=== PATIENT | female | born 1980 | race Caucasian/White ===

== ENCOUNTER 2023-09-28 10:40 | Emergency (ER) | payer MEDICAID ==
[~2023-09-28] VITALS: Ht 162.6 cm; Wt 87.3 kg
[~2023-09-28 10:40] MED LIST: ARIP2TAB; ESCI10TA; METH40TA13
[2023-09-28 10:53] VITALS: TEMP 98
[2023-09-28 10:59] VITALS: BP 146/69; PULSE 74; RESP 17; O2SAT 100
== END 2023-09-28 14:22 | disposition home or self-care (01) ==
LOC: ER 10:40
DX: R07.81 Pleurodynia (principal); R51.9 Headache, unspecified; J45.909 Unspecified asthma, uncomplicated; F32.A Depression, unspecified; F17.210 Nicotine dependence, cigarettes, uncomplicated; Z90.49 Acquired absence of other specified parts of digestive tract; Z88.5 Allergy status to narcotic agent; Y08.89XA Assault by other specified means, initial encounter; Y93.89 Activity, other specified; Y92.89 Other specified places as the place of occurrence of the external cause; Y99.8 Other external cause status
CPT/HCPCS: 70450; 71101; 99284; J7030; J7060

== ENCOUNTER 2024-06-12 16:14 | Emergency (ER) | payer MEDICAID ==
[~2024-06-12] VITALS: Ht 162.6 cm; Wt 95.1 kg
--- NOTE | 2024-06-12 17:11 | ED.PDOC ---
HPI (NEURO) HPI Comments HPI: Past Medical History: ASTHMA, DEPRESSION Past Surgical History: CHOLECYSTECTOMY, Social History: Allergies: TRAMADOL HPI: Poor Historian. 44-year-old female presents to emergency department for two week history of nonspecific headache. She points her forehead and the crown of her head radiating to the back. Headache is mild and vague. Patient states that she gets headaches frequently. This one has been lingering in the longer. Patient has some intermittent associated blurry vision but she said she is supposed to be wearing prescription glasses but she is not wearing them. Patient also is here for urinary symptoms increasing urinary frequency for the last two weeks as well with some lower back discomfort associated with the urinary symptoms. Denies any other symptoms. Patient denies REVIEW OF SYSTEMS: CONSTITUTIONAL: Denies acute: fever, diaphoresis, chills, generalized weakness. HEAD: Denies acute: photophobia Eyes: Denies acute: Double vision, vision loss, eye pain, eye discharge. EARS: Denies acute: tinnitus, hearing loss, ear discharge, ear pain, THROAT: Denies acute: sore throat, swelling, difficulty swallowing , pain with swallowing, change in voice. NECK: Denies acute: neck pain, neck swelling, stiff neck. HEART: Denies acute : chest pain, palpitations, LUNGS: Denies acute: SOB, wheezing, cough, hemoptysis ABDOMEN: Denies acute: abdominal pain, Nausea, Vomiting, diarrhea, melena , hematemesis, hematochezia SKIN: Denies acute: rash, redness, lesions, itchiness. EXTREMITIES: Denies acute: calf pain, numbness, tingling, weakness, denies pain in extremity. Denies acute: Low back pain. Neuro: Denies acute: focal neurological deficit, motor or sensory focal neurological deficit, tremors, seizure like activity, confusion, dizziness, change in mental status, loss of bowel or bladder function, cauda equina like symptoms. : Denies acute: dysuria, hematuria, flank pain, PSYCH: Denies acute: hallucination, suicidal ideation, homicidal ideation. FEMALE: Denies acute: abnormal vaginal bleeding, foul odor, unusual discharge. PHYSICAL EXAM: General: no acute distress, awake and alert. Head: normocephalic, atraumatic. Neck: supple, trachea is midline, no swelling. Throat: Normal phonation. Eyes:, no erythema, no purulent discharge, no proptosis, no icterus. Heart: regular rate, regular rhythm, no significant murmur appreciated. Lungs: no apparent respiratory distress, Able to speak in full sentences. No wheezing, no rhonchi, no crackles. No stridors Clear to auscultation bilaterally. Abdomen: non tender to palpation, non distended, soft, no guarding, no rebound, + bowel sounds. Neuro: Awake, Alert, oriented to name, self, situation, follows commands GCS=15. Speech is normal. Skin: no petechia, no purpura, no cyanosis, non-pale, not jaundice. Lower extremities: --no - Pitting edema no deformity, no focal swelling, no calf TTP. Makes eye contact. moves all four extremities. Face: no apparent facial droop. Ambulating in the ED independently. PERRLA, EOM-I CN 2-12 are grossly intact, No nystagmus. No nuchal rigidity, Kernig's sign, Brudzinski's sign, no meningeal signs. ED COURSE: Chief Complaint: Headache Time Seen by MD: 16:21 Primary Care Provider: TOMY Reviewed Notes: Nurses Notes, Medications, Allergies Information Source: Patient Mode of Arrival: Ambulatory Past Medical History PAST MEDICAL HISTORY: Asthma, Depression Surgical History: Cholecystectomy, Family History Family History: Unknown Social History Smoker: Greater Than 1 Pack/Day Alcohol: Denies ETOH Use Drugs: Denies Drug Use Lives In: Home Was a procedure done? Was a procedure done?: No Differential Diagnosis (SZ) Seizure: N/A Headache: Other (DDX include Sinusitis, migraine, meningitis, hypertension, intracranial mass/bleed, stroke, radiculopathy, vertebrobasillary insufficiency, cephalgia, pseudotumor cerebri, cerebellar ischemia/infarct, carotid stenosis, lacunar infarct, vertebral/carotid artery dissection, hydrocephalus, temporal arteritis, dura venous sinus thrombosis.) X-Ray, Labs, Meds, VS Vital Signs Date Time Temp Pulse Resp B/P (MAP) Pulse Ox O2 Delivery O2 Flow Rate FiO2 06/12/24 22:09 98.6 78 16 116/72 (87) 99 98.6 06/12/24 21:13 72 20 98 Room Air* 0 21 06/12/24 21:12 98.3 75 18 149/78 (101) 98 98.3 06/12/24 17:30 60 16 118/61 (80) 96 06/12/24 17:17 74 20 95 Room Air* 0 21 06/12/24 16:25 97.6 83 19 117/74 (88) 96 Lab Test 06/12/24 17:00 06/12/24 16:57 06/12/24 16:52 Range/Units Urine Color Yellow Yellow Urine Clarity Clear Clear Urine pH 6.5 5.0-9.0 Urine Specific [place] 1.020 1.001-1.035 Urine Protein Negative Negative Urine Ketones Negative Negative Urine Blood Negative Negative /uL Urine Nitrite Negative Negative Urine Bilirubin Negative Negative Urine Urobilinogen 2 H Negative mg/dL Urine Leukocyte Esterase Trace Negative /uL Urine RBC 3 0 - 4 /hpf Urine Microscopic WBC 4 0-5 /HPF Urine Squamous Epithelial Cells Few <5 /hpf Urine Bacteria Few H None Seen /hpf Urine Mucus Few None Seen Urine Glucose Normal Normal mg/dL Urine Test Negative Negative Urine Opiates Screen Neg NEGATIVE Urine Fentanyl Screen Neg NEGATIVE Urine Barbiturates Screen Neg NEGATIVE Urine Phencyclidine Screen Neg NEGATIVE Urine Amphetamines Screen Neg NEGATIVE Urine Benzodiazepines Screen Neg NEGATIVE Urine Cocaine Screen Neg NEGATIVE Urine Cannabinoids Screen Neg NEGATIVE Lactic Acid Level 1.1 0.4-2.0 mmol/L White Blood Count 5.2 4.4-10.8 10^3/uL Red Blood Count 4.42 4.0-5.20 10^6/uL Hemoglobin 13.3 12.2-16.2 g/dL Hematocrit 39.5 36.0-46.0 % Mean Corpuscular Volume 89.4 80.0-100.0 fL Mean Corpuscular Hemoglobin 30.1 28.0-32.0 pg Mean Corpuscular Hemoglobin Concent 33.7 32.0-36.0 g/dL Red Cell Distribution Width 17.6 H 11.8-14.3 % Platelet Count 339 140-450 10^3/uL Mean Platelet Volume 7.7 6.9-10.8 fL Neutrophils (%) (Auto) 55.6 37.0-80.0 % Lymphocytes (%) (Auto) 32.0 10.0-50.0 % Monocytes (%) (Auto) 10.0 0.0-12.0 % Eosinophils (%) (Auto) 1.6 0.0-7.0 % Basophils (%) (Auto) 0.8 0.0-2.0 % Neutrophils # (Auto) 2.9 1.6-8.6 10 ^3/uL Lymphocytes # (Auto) 1.7 0.4-5.4 10 ^3/uL Monocytes # (Auto) 0.5 0-1.3 10 ^3/uL Eosinophils # (Auto) 0.1 0-0.8 10 ^3/uL Basophils # (Auto) 0 0-0.2 10 ^3/uL Nucleated Red Blood Cells 0.0 % Erythrocyte Sedimentation Rate Pending Sodium Level 139 136-145 mmol/L Potassium Level 4.3 3.5-5.1 mmol/L Chloride Level 107 98-107 mmol/L Carbon Dioxide Level 25 20-31 mmol/L Anion Gap 7 5-15 Blood Urea Nitrogen 13 9-23 mg/dL Creatinine 0.76 0.550-1.02 mg/dL Glomerular Filtration Rate Calc 98 >90 mL/min BUN/Creatinine Ratio 17.1 10.0-20.0 Serum Glucose 84 74-106 mg/dL Calcium Level 9.7 8.7-10.4 mg/dL Total Bilirubin 0.3 0.2-1.0 mg/dL Aspartate Amino Transferase (AST) 19 13-40 U/L Alanine Aminotransferase (ALT) 15 7-40 U/L Alkaline Phosphatase 58 46-116 U/L Troponin I High Sensitivity < 3 L </=34 ng/L Total Protein 6.9 5.7-8.2 g/dL Albumin 4.3 3.2-4.8 g/dL Current Medications Medications (Trade) Dose Ordered Sig/Ivon Route Start Time Stop Time Status Last Admin Sodium Chloride 1,000 ml @ 1,000 mls/hr Q1H ONCE IV 06/12/24 16:30 06/12/24 17:29 DC 06/12/24 17:16 Acetaminophen/ Hydrocodone Bitart ([place] 5/325MG Tab) 1 tab ONCE ONCE PO 06/12/24 16:30 06/12/24 16:31 DC 06/12/24 17:20 Ceftriaxone Sodium 50 ml @ 100 mls/hr ONCE ONCE IV 06/12/24 20:15 06/12/24 20:44 DC 06/12/24 21:02 [place] [address] Ph: [phone] DIAGNOSTIC IMAGING Diagnostic Imaging Report : [id number] Signed PATIENT: ANNMARIE SHEPHERD ACCT: [id number] UNIT: [id number] : 1980 LOC: ER ROOM / BED: / AGE / SEX: 44 / F ADM STATUS: REG ER SERVICE 1621 ORDERING PHYSICIAN: WING TAVARES DO PROCEDURE(s): HWOCT - HEAD WITHOUT CONTRAST REASON: [facility] ORDER NUMBER(s): [id number], ACCESSION NUMBER(s): [id number] EXAM: CT HEAD WITHOUT CONTRAST HISTORY: [facility] COMPARISON: CT HEAD WITHOUT CONTRAST on DOS: 09/28/23 TECHNIQUE: Axial images were obtained and reformatted in coronal and sagittal planes. All CT scans at this medical facility are performed using dose modulation techniques as appropriate to a performed exam including the following: Automated exposure control was utilized; adjustment of the MA and/or KV according to patient size; and use of iterative reconstruction technique. CT Dose: CTDI volume is 56.56 mGy. Dose-length product is 1133.0 mGy*cm FINDINGS: Supratentorial Region: No large acute territorial ischemia. A stable subcentimeter hypoattenuating focus at the inferior aspect of the lentiform nucleus. Stable subcortical hypoattenuating focus superior to left sylvian fissure . No intracranial hemorrhage is noted. Posterior Fossa: No acute abnormality. Brainstem: Unremarkable. Sellar/Suprasellar Region: Unremarkable. Ventricles, Cisterns, Sulci: Age-appropriate. Orbits: Unremarkable. Paranasal Sinuses: Opacification of a right posterior ethmoid air cell. Mastoid Air Cells: Unremarkable. Vasculature: Unremarkable. Bones/Soft Tissues: No acute abnormality. Other: None. IMPRESSION: 1. No acute intracranial process. 2. Stable mild white matter disease more noticeable on the left side. The differential diagnosis includes hypoxic/ischemic etiologies (atherosclerotic, hypertension, migraine), inflammatory/infectious etiologies (demyelination disorders) or other. Recommend clinical correlation and further evaluation by MRI as clinically warranted. 3. Worsening right ethmoid sinusitis. ATED BY: MARÍA SERNA MD DICTATED DATE/TIME: 06/12/241941 SIGNED BY: MARÍA SERNA MD SIGNED DATE/TIME: 06/12/241941 CC: Time of 1ST Reevaluation: 17:43 Reevaluation 1ST: Unchanged Time of 2ND Reevaluation: 21:40 (Patient requesting to be discharged home. She says that her symptoms have resolved.) Reevaluation 2ND: Resolved Patient Education/Counseling: Diagnosis, Treatment Family Education/Counseling: No Family Present Comments Patient presented with the above HPI.---neuro and urinary complaints---workup was initiated. patient was found with the above mentioned diagnosis. the following medications were ordered: please refer to order lists of meds and tests obtained by myself Dr. Tavares. Patient ED course and VS have been stabilized. Patient has been reassessed in the ED and remained in a stable condition. Pertinent incidental findings were discussed with the patient and/or family. Patient/family voices understanding and is agreeable with plan. Patient has been observed in the ED adequate length of time to insure improvement/stability. Escalation of care considered: Consideration of escalation to observation or admission And has no neurological deficits. Patient has no patient loss. Symptoms have resolved here in the ED. Patient was DISCHARGED home in a stable condition. All the reports of any imaging studies that were ordered by myself were reviewed by myself. Departure 1 Departure Time of Disposition: 21:39 Impression: Primary Impression: UTI (urinary tract infection) Additional Impressions: Sinusitis Headache Disposition: 01 HOME / SELF CARE / HOMELESS Condition: Stable Additional Instructions: Additional discharge instructions: You MUST follow-up with your primary care/family doctor in 1 to 2 days. If you are unable to see your primary care/family doctor, please return to our emergency room for re-assessment and re-evaluation in 1 to 2 days. Return to the emergency room here in our facility or to the nearest ER [facility] if your symptoms change or worsen. CONSULTATIONS: you MUST Follow-up for consultation as soon as possible with: ENT and neurology in 1-2 days. Please call for appointment. You MUST call the consultants office yourself to make an appointment. You may need to arrange that through your insurance and/or your primary/family doctor. If you are unable to see the field consultant in 1 to 2 days, you must return to our emergency room (or any other ER of your choice) for re-assessment and re- evaluation. Adequate fluid hydration. Below is a copy of your radiological report for follow up: [address] [address] Ph: [phone] DIAGNOSTIC IMAGING Diagnostic Imaging Report : [id number] Signed PATIENT: ANNAMRIE SHEPHERD ACCT: [id number] UNIT: [id number] : 1980 LOC: ER ROOM / BED: / AGE / SEX: 44 / F ADM STATUS: REG ER SERVICE 1621 ORDERING PHYSICIAN: WING TAVARES DO PROCEDURE(s): HWOCT - HEAD WITHOUT CONTRAST REASON: [place] ORDER NUMBER(s): [id number], ACCESSION NUMBER(s): [id number] EXAM: CT HEAD WITHOUT CONTRAST HISTORY: [place] COMPARISON: CT HEAD WITHOUT CONTRAST on DOS: 09/28/23 TECHNIQUE: Axial images were obtained and reformatted in coronal and sagittal planes. All CT scans at this medical facility are performed using dose modulation techniques as appropriate to a performed exam including the following: Automated exposure control was utilized; adjustment of the MA and/or KV according to patient size; and use of iterative reconstruction technique. CT Dose: CTDI volume is 56.56 mGy. Dose-length product is 1133.0 mGy*cm FINDINGS: Supratentorial Region: No large acute territorial ischemia. A stable subcentimeter hypoattenuating focus at the inferior aspect of the lentiform nucleus. Stable subcortical hypoattenuating focus superior to left sylvian fissure . No intracranial hemorrhage is noted. Posterior Fossa: No acute abnormality. Brainstem: Unremarkable. Sellar/Suprasellar Region: Unremarkable. Ventricles, Cisterns, Sulci: Age-appropriate. Orbits: Unremarkable. Paranasal Sinuses: Opacification of a right posterior ethmoid air cell. Mastoid Air Cells: Unremarkable. Vasculature: Unremarkable. Bones/Soft Tissues: No acute abnormality. Other: None. IMPRESSION: 1. No acute intracranial process. 2. Stable mild white matter disease more noticeable on the left side. The differential diagnosis includes hypoxic/ischemic etiologies (atherosclerotic, hypertension, migraine), inflammatory/infectious etiologies (demyelination disorders) or other. Recommend clinical correlation and further evaluation by MRI as clinically warranted. 3. Worsening right ethmoid sinusitis. ATED BY: MARÍA SERNA MD DICTATED DATE/TIME: 06/12/241941 SIGNED BY: MARÍA SERNA MD SIGNED DATE/TIME: 06/12/241941 CC: e-Prescriptions Amoxicillin & Pot Clavulanate (AUGMENTIN TABLET) 875 Mg Tb 875 MG PO BID for 7 Days, #14 TAB Prov: WING TAVARES DO 06/12/24 Discharged With: Self Critical Care Note Critical Care Time?: No Heart Score Heart Score: Heart Score Response (Comments) Value History N/A 0 EKG N/A 0 Age N/A 0 Risk Factors N/A 0 Troponin N/A 0 Total 0 I personally scribed for WING TAVARES DO ([email or web address]) on 06/12/24 at 17:16. Electronically submitted by Bandar Tony ([email or web address]). I personally scribed for WING TAVARES DO ([email or web address]) on 06/12/24 at 21:43. Electronically submitted by Aurea Dalton ([email or web address]). WING TAVARES DO Jun 12, 2024 17:11
[2024-06-12 17:12] LABS: Basophils # (auto) 0 10 ^3/uL (0-0.2); Basophils % (auto) 0.8 % (0.0-2.0); Eosinophils # (auto) 0.1 10 ^3/uL (0-0.8); Eosinophils % (auto) 1.6 % (0.0-7.0); Hematocrit 39.5 % (36.0-46.0); Hemoglobin 13.3 g/dL (12.2-16.2); Lymphocytes # (auto) 1.7 10 ^3/uL (0.4-5.4); Mean Corpuscular Hemoglobin 30.1 pg (28.0-32.0); Mean Corpuscular Hgb Conc. 33.7 g/dL (32.0-36.0); Mean Corpuscular Volume 89.4 fL (80.0-100.0); Monocytes # (auto) 0.5 10 ^3/uL (0-1.3); Neutrophils # (auto) 2.9 10 ^3/uL (1.6-8.6); Neutrophils % (auto) 55.6 % (37.0-80.0); Platelet Count (auto) 339 10^3/uL (140-450); Red Blood Cells 4.42 10^6/uL (4.0-5.20); Red Cell Distribution Width 17.6 % (11.8-14.3); White Blood Cell 5.2 10^3/uL (4.4-10.8)
[2024-06-12] MEDS: SODIUM CHLORIDE 0.9% 1,000 ML IV ONE (17:16)
[2024-06-12 17:17] VITALS: PULSE 74; RESP 20; O2SAT 95
[2024-06-12] MEDS: HYDROcodone-ACET 5/325MG TAB PO ONE (17:20)
[2024-06-12 17:31] LABS: Alanine Aminotransferase 15 U/L (7-40); Albumin 4.3 g/dL (3.2-4.8); Alkaline Phosphatase 58 U/L (46-116); Anion Gap 7 (5-15); Aspartate Aminotransferase 19 U/L (13-40); Calcium 9.7 mg/dL (8.7-10.4); Carbon Dioxide 25 mmol/L (20-31); Chloride 107 mmol/L (98-107); Glucose 84 mg/dL (74-106); Potassium 4.3 mmol/L (3.5-5.1); Sodium 139 mmol/L (136-145)
[2024-06-12 17:37] LABS: Urine Bacteria FEW /hpf (None Seen); Urine Blood Negative /uL (Negative); Urine Clarity Clear (Clear); Urine Color Yellow (Yellow); Urine Mucus FEW (None Seen); Urine Protein, UAD Negative (Negative); Urine Squamous Epithelial Cell FEW /hpf (<5); Urine Urobilinogen 2 mg/dL (Negative); Urine WBC 4 /HPF (0-5); Urine pH 6.5 (5.0-9.0)
[2024-06-12 17:52] LABS: BUN/Creatinine Ratio 17.1 (10.0-20.0); Bilirubin, Total 0.3 mg/dL (0.2-1.0); Blood Urea Nitrogen 13 mg/dL (9-23); Total Protein 6.9 g/dL (5.7-8.2)
--- NOTE | 2024-06-12 19:44 | DVH ---
EXAM: CT HEAD WITHOUT CONTRAST HISTORY: [place] COMPARISON: CT HEAD WITHOUT CONTRAST on DOS: 09/28/23 TECHNIQUE: Axial images were obtained and reformatted in coronal and sagittal planes. All CT scans at this medical facility are performed using dose modulation techniques as appropriate t o a performed exam including the following: Automated exposure control was utilized; adjustment of th e MA and/or KV according to patient size; and use of iterative reconstruction technique. CT Dose: CTDI volume is 56.56 mGy. Dose-length product is 1133.0 mGy*cm FINDINGS: Supratentorial Region: No large acute territorial ischemia. A stable subcentimeter hypoattenuating f ocus at the inferior aspect of the lentiform nucleus. Stable subcortical hypoattenuating focus superi or to left sylvian fissure . No intracranial hemorrhage is noted. Posterior Fossa: No acute abnormality. Brainstem: Unremarkable. Sellar/Suprasellar Region: Unremarkable. Ventricles, Cisterns, Sulci: Age-appropriate. Orbits: Unremarkable. Paranasal Sinuses: Opacification of a right posterior ethmoid air cell. Mastoid Air Cells: Unremarkable. Vasculature: Unremarkable. Bones/Soft Tissues: No acute abnormality. Other: None. IMPRESSION: 1. No acute intracranial process. 2. Stable mild white matter disease more noticeable on the left side. The differential diagnosis in cludes hypoxic/ischemic etiologies (atherosclerotic, hypertension, migraine), inflammatory/infectious etiologies (demyelination disorders) or other. Recommend clinical correlation and further evaluatio n by MRI as clinically warranted. 3. Worsening right ethmoid sinusitis.
[2024-06-12] MEDS ORDERED: AUG875T PO (20:50)
[2024-06-12] MEDS: cefTRIAXone 1GM/50ML D5W 50 ML IV ONE (21:02)
[2024-06-12 21:13] VITALS: PULSE 72; RESP 20; O2SAT 98
[2024-06-12 22:09] VITALS: BP 116/72; PULSE 78; RESP 16; TEMP 98.6; O2SAT 99
[2024-06-12 22:46] LABS: Amphetamine Screen, Urine Neg (NEGATIVE); Barbiturate Scree,Urine Neg (NEGATIVE); Benzodiazephine Screen, Urine Neg (NEGATIVE); Cannabinoid Screen, Urine Neg (NEGATIVE); Cocaine Screen, Urine Neg (NEGATIVE); Opiate Scree,Urine Neg (NEGATIVE); Phencyclidine Screen, Urine Neg (NEGATIVE)
[2024-06-13 17:26] LABS: Erythrocyte Sedimentation Rate 13 mm/hr (0-20)
== END 2024-06-12 22:26 | disposition home or self-care (01) ==
LOC: ER 16:14
DX: N39.0 Urinary tract infection, site not specified (principal); R51.9 Headache, unspecified; J32.9 Chronic sinusitis, unspecified; J45.909 Unspecified asthma, uncomplicated; Z98.890 Other specified postprocedural states; Z90.49 Acquired absence of other specified parts of digestive tract; Z88.8 Allergy status to other drugs, medicaments and biological substances; Z79.899 Other long term (current) drug therapy
CPT/HCPCS: 36415; 70450; 80053; 80307; 81001; 81025; 83605; 84484; 85025; 85652; 96361; 96365; 99285; J0696; J7030

== ENCOUNTER 2024-07-02 13:48 | Emergency (ER) | payer MEDICAID ==
[~2024-07-02] VITALS: Ht 162.6 cm; Wt 95.9 kg
[~2024-07-02 13:48] MED LIST changes: +AUG875T PO
[2024-07-02] MEDS ORDERED: MUPI2CRE17 EX (15:39)
[2024-07-02] MEDS ORDERED: AZIT500T66 PO (15:39)
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
[2024-07-02 15:49] LABS: Urine Bacteria None Seen /hpf (None Seen)
[2024-07-02 16:04] LABS: Urine Blood Negative /uL (Negative); Urine Clarity Clear (Clear); Urine Color Light-Yellow (Yellow); Urine Protein, UAD Negative (Negative); Urine Specific Gravity 1.006 (1.001-1.035); Urine Squamous Epithelial Cell FEW /hpf (<5); Urine Urobilinogen Normal (Negative); Urine WBC 1 /HPF (0-5)
[2024-07-02 16:50] VITALS: BP 136/72; PULSE 84; RESP 18; TEMP 97.6; O2SAT 99
== END 2024-07-02 17:02 | disposition home or self-care (01) ==
LOC: ER 13:48
DX: T25.221A Burn of second degree of right foot, initial encounter (principal); K58.9 Irritable bowel syndrome, unspecified; F32.A Depression, unspecified; J45.909 Unspecified asthma, uncomplicated; F17.210 Nicotine dependence, cigarettes, uncomplicated; Z90.49 Acquired absence of other specified parts of digestive tract; Z98.84 Bariatric surgery status; Z98.890 Other specified postprocedural states; Z79.899 Other long term (current) drug therapy; Z88.5 Allergy status to narcotic agent; Z88.1 Allergy status to other antibiotic agents; X08.8XXA Exposure to other specified smoke, fire and flames, initial encounter; Y93.I9 Activity, other involving external motion; Y92.89 Other specified places as the place of occurrence of the external cause; Y99.8 Other external cause status
CPT/HCPCS: 81001